=== PATIENT | male | born 1935 | race Caucasian/White ===

== ENCOUNTER 2016-09-24 13:07 | Emergency (ER) | payer OTHER, BC ==
[~2016-09-24] VITALS: Ht 180.3 cm; Wt 102.0 kg
[~2016-09-24 13:07] MED LIST: ADULT LOW DOSE81 M1 PO; ALLOPURINOL100 MG PO; AMLODIPINE BESYL5 MG PO; ASPIR 8181 M1 PO; AUGMENTIN 500-1 EACH PO; BABY ASPIRIN81 MG PO; CARDIZEM CD120 M1 PO; CATAPRES0.1 MG PO; CLONIDINE HCL0.1 MG PO; FLONASE ALLERG9.9 ML BOTH NARES; FORTAMET500 M1 PO; GARLIC OIL1000 MG PO; GARLIC1000 MG PO; GLUCOPHAGE500 MG PO; IBUPROFEN200 M1 PO; IMDUR60 MG PO; ISOSORBIDE DINI10 MG PO; ISOSORBIDE MONO60 MG PO; KETOPROFEN 50 MG PO; LASIX10 MG PO; LEVAQUIN500 MG PO; LIPITOR40 MG PO; LISINOPRIL-HCT1 EAC3 PO; MELOXICAM7.5 MG PO; METFORMIN HCL1000 MG PO; METOPROLOL TART50 MG PO; NABUMETONE500 MG PO; NAPROXEN500 MG PO; NORVASC5 MG PO; OMEPRAZOLE20 M2 PO; OMEPRAZOLE20 MG PO; PRAVASTATIN SOD80 MG PO; PREDNISONE10 MG PO; PREVACID15 MG PO; PRILOSEC OTC20 MG PO; PROAIR HFA8.5 GM IH; SIMVASTATIN80 M1 PO; TOPROL XL50 MG PO; VICODIN 5-3001 EACH PO; VITAMIN D31000 UNI2 PO; ZESTORETIC,P1 TABLE1 PO; ZITHROMAX250 MG PO
[2016-09-24 15:35] LABS: EOSINOPHIL (%) 4.8 % (0-5); EOSINOPHIL COUNT 0.3 K/uL (0-0.3); HEMATOCRIT 35.4 % (38.0-50.0); IMMATURE GRANULOCYTE (%) 0.7 % (0.0-0.7); IMMATURE GRANULOCYTE COUNT 0.4 K/uL; LYMPHOCYTE COUNT 1.9 K/uL (1.0-2.8); MCH 33.4 PG (29.0-34.0); MCHC 36.4 G/DL (30.0-36.0); MCV 91.7 FL (86-99); MEAN PLAT.VOLUME 10.1 uM^3 (9.0-12.4); MONOCYTE (%) 8.9 % (3-12); MONOCYTE COUNT 0.5 K/uL (0-0.8); NEUTROPHIL (%) 53.3 % (45-76); NEUTROPHIL COUNT 3.2 K/uL (1.8-6.4); PLATELET COUNT 207 K/uL (156-360); RBC DIS.WIDTH-CV 12.2 % (11.8-14.6); RBC DIS.WIDTH-SD 39.7 % (39-53); RED BLOOD COUNT 3.86 M/uL (4.00-5.50); WHITE BLOOD COUNT 6.1 K/uL (4.1-10.2)
[2016-09-24 15:46] LABS: CHLORIDE 101 mEq/L (99-109); POTASSIUM 4.4 mEq/L (3.7-5.4); SODIUM 135 mEq/L (136-147)
[2016-09-24 15:48] LABS: GLUCOSE 126 mg/dL (70-99)
[2016-09-24 15:49] LABS: ANION GAP 8 MEQ/L (2-14)
[2016-09-24 15:50] LABS: TOTAL BILIRUBIN 0.5 mg/dL (0.0-1.0)
[2016-09-24 15:51] LABS: ALKALINE PHOSPHATASE 82 IU/L (3-129)
[2016-09-24 15:52] LABS: GFR ESTIMATE (CALCULATED) 42 mL/min/
[2016-09-24 15:53] LABS: UREA NITROGEN (BUN) 20 mg/dL (9-23)
[2016-09-24 15:55] LABS: LIPASE 33 U/L (1.0-51.0)
[2016-09-24 16:00] LABS: ADD MIUA? YES; BILIRUBIN NEGATIVE; BLOOD NEGATIVE; COLOR YELLOW ((YELLOW)); GLUCOSE (STRIP) NEGATIVE; KETONES NEGATIVE; LEUKOCYTES TRACE; NITRITE NEGATIVE; PROTEIN (STRIP) NEGATIVE; SPECIFIC GRAVITY 1.009 (1.000-1.030); UROBILINOGEN 0.2 MG/DL (0.2-1.0)
[2016-09-24 16:10] LABS: BACTERIA NONE SEEN /HPF; EPITHELIAL CELLS RARE /HPF; HYALINE CASTS 0-5 /LPF; MUCUS NONE SEEN /LPF; RED BLOOD CELLS 0-5 /HPF (0-5); WHITE BLOOD CELLS 0-5 /HPF (0-5)
[2016-09-24] MEDS ORDERED: LORTAB 5-325 M1 EACH PO (17:01)
[2016-09-24] MEDS ORDERED: ZYRTEC10 M3 PO (17:01)
[2016-09-24] MEDS ORDERED: COLACE100 MG PO (17:01)
[2016-09-24 17:40] VITALS: BP 135/69
== END 2016-09-24 17:48 | disposition home or self-care (01) ==
LOC: EME 13:07
PROVIDERS: Emergency Medicine
DX: S39.011A Strain of muscle, fascia and tendon of abdomen, initial encounter (principal); X58.XXXA Exposure to other specified factors, initial encounter; I10 Essential (primary) hypertension; E78.5 Hyperlipidemia, unspecified; E11.9 Type 2 diabetes mellitus without complications; Z95.1 Presence of aortocoronary bypass graft; Z79.82 Long term (current) use of aspirin
CPT/HCPCS: 74176; 80053; 81003; 83690; 85025; 99281; 99284; J2270; J2405; J3010; J7030

== ENCOUNTER 2017-04-01 12:47 | Inpatient (IN) | payer OTHER, BC ==
[~2017-04-01] VITALS: Ht 180.3 cm; Wt 96.7 kg
[~2017-04-01 12:47] MED LIST changes: +COLACE100 MG PO; +LORTAB 5-325 M1 EACH PO; +ZYRTEC10 M3 PO
[2017-04-01 15:08] LABS: BASOPHIL COUNT 0.1 K/uL (0-0.1); EOSINOPHIL (%) 0.7 % (0-5); EOSINOPHIL COUNT 0.1 K/uL (0-0.3); HEMATOCRIT 34.2 % (38.0-50.0); IMMATURE GRANULOCYTE (%) 0.4 % (0.0-0.7); IMMATURE GRANULOCYTE COUNT 0.1 K/uL; INSTRUMENT ABS NEUTROPHIL CT 11.9 K/uL; LYMPHOCYTE COUNT 2.1 K/uL (1.0-2.8); MCV 94.5 FL (86-99); MEAN PLAT.VOLUME 10.8 uM^3 (9.0-12.4); MONOCYTE (%) 8.4 % (3-12); MONOCYTE COUNT 1.3 K/uL (0-0.8); NEUTROPHIL (%) 76.6 % (45-76); NEUTROPHIL COUNT 11.9 K/uL (1.8-6.4); PLATELET COUNT 190 K/uL (156-360); RBC DIS.WIDTH-SD 44.5 % (39-53); RED BLOOD COUNT 3.62 M/uL (4.00-5.50); WHITE BLOOD COUNT 15.6 K/uL (4.1-10.2)
[2017-04-01 15:16] LABS: CHLORIDE 102 mEq/L (99-109); INTER. NORMALIZED RATIO 1.2; POTASSIUM 3.6 mEq/L (3.7-5.4); PROTHROMBIN TIME 13.6 SEC (10.2-12.9); SODIUM 139 mEq/L (136-147)
[2017-04-01 15:18] LABS: GLUCOSE 111 mg/dL (70-99)
[2017-04-01 15:19] LABS: PTT 28.9 SEC (25-37)
[2017-04-01 15:20] LABS: ANION GAP 12 MEQ/L (2-14)
[2017-04-01 15:22] LABS: GFR ESTIMATE (CALCULATED) 42 mL/min/
[2017-04-01 15:23] LABS: UREA NITROGEN (BUN) 28 mg/dL (9-23)
[2017-04-01 15:30] LABS: TROP-I INTERPRETATION INDETERMINATE; TROPONIN-I 0.51 ng/mL (0.0-0.30)
[2017-04-01 16:44] LABS: INFLUENZA A VIRAL ANTIGEN NEGATIVE; INFLUENZA B VIRAL ANTIGEN NEGATIVE
[2017-04-01 17:10] VITALS: BP 144/76
[2017-04-01 17:10] LABS: INTER. NORMALIZED RATIO 1.2; PROTHROMBIN TIME 13.7 SEC (10.2-12.9)
[2017-04-01 17:13] LABS: PTT 28.2 SEC (25-37)
[2017-04-01 17:29] LABS: Estimated Average Glucose 160 mg/dL (70-123); HEMOGLOBIN A1c (GLYCOHEMOGLOB) 7.2 % HGB (Below 5.7)
[2017-04-01 17:31] LABS: HDL CHOLESTEROL 30 MG/DL (Desirable>=40); LDL CHOLESTEROL 65 mg/dL (Desirable<100); NON-HDL CHOLESTEROL 90 mg/dL (Desirable<160); TOTAL CHOLESTEROL 120 mg/dL (Desirable<200); TRIGLYCERIDES 125 MG/DL (Normal: <150)
[2017-04-01 19:33] VITALS: BP 123/58
[2017-04-01 21:13] LABS: POINT-OF-CARE METER ID UU13113698
[2017-04-02] VITALS (7 sets, daily range): BP systolic 137–150; BP diastolic 62–95
[2017-04-02 00:59] LABS: TROP-I INTERPRETATION NEGATIVE; TROPONIN-I 0.29 ng/mL (0.0-0.30)
[2017-04-02 05:30] LABS: TROP-I INTERPRETATION NEGATIVE; TROPONIN-I 0.17 ng/mL (0.0-0.30)
[2017-04-02 05:35] LABS: BASOPHIL COUNT 0.1 K/uL (0-0.1); EOSINOPHIL (%) 4.4 % (0-5); EOSINOPHIL COUNT 0.6 K/uL (0-0.3); HEMATOCRIT 32.1 % (38.0-50.0); IMMATURE GRANULOCYTE (%) 0.6 % (0.0-0.7); IMMATURE GRANULOCYTE COUNT 0.1 K/uL; INSTRUMENT ABS NEUTROPHIL CT 9.9 K/uL; LYMPHOCYTE COUNT 1.3 K/uL (1.0-2.8); MCH 33.2 PG (29.0-34.0); MCHC 34.6 G/DL (30.0-36.0); MCV 96.1 FL (86-99); MONOCYTE (%) 6.6 % (3-12); MONOCYTE COUNT 0.8 K/uL (0-0.8); NEUTROPHIL (%) 77.8 % (45-76); NEUTROPHIL COUNT 9.9 K/uL (1.8-6.4); PLATELET COUNT 175 K/uL (156-360); RBC DIS.WIDTH-CV 13.2 % (11.8-14.6); RBC DIS.WIDTH-SD 45.8 % (39-53); RED BLOOD COUNT 3.34 M/uL (4.00-5.50); WHITE BLOOD COUNT 12.7 K/uL (4.1-10.2)
[2017-04-02 05:42] LABS: CHLORIDE 104 mEq/L (99-109); POTASSIUM 3.6 mEq/L (3.7-5.4); SODIUM 136 mEq/L (136-147)
[2017-04-02 05:43] LABS: GLUCOSE 149 mg/dL (70-99)
[2017-04-02 05:45] LABS: ANION GAP 12 MEQ/L (2-14)
[2017-04-02 05:47] LABS: GFR ESTIMATE (CALCULATED) 52 mL/min/
[2017-04-02 05:48] LABS: UREA NITROGEN (BUN) 23 mg/dL (9-23)
[2017-04-02 08:04] LABS: POINT-OF-CARE METER ID UU13113781; POINT-OF-CARE USER ID ENVKC36
[2017-04-02 08:24] LABS: INTERNAL CONTROL VALID? YES
[2017-04-02] MEDS ORDERED: TYLENOL ARTHRI650 MG PO (08:48)
[2017-04-02 11:26] LABS: POINT-OF-CARE METER ID UU14174216
[2017-04-02] MEDS ORDERED: GLIPIZIDE5 MG PO (16:21)
[2017-04-02] MEDS ORDERED: POTASSIUM CHLO10 ME4 PO (16:21)
[2017-04-02] MEDS ORDERED: FUROSEMIDE20 MG PO (16:21)
[2017-04-02] MEDS ORDERED: RANITIDINE HCL150 MG PO (16:22)
[2017-04-02 16:51] LABS: POINT-OF-CARE METER ID UU13113781
[2017-04-02 21:32] LABS: POINT-OF-CARE METER ID UU13113781
[2017-04-03 06:04] LABS: HEMATOCRIT 30.7 % (38.0-50.0); MCH 35.1 PG (29.0-34.0); MCHC 36.5 G/DL (30.0-36.0); MCV 96.2 FL (86-99); MEAN PLAT.VOLUME 11.2 uM^3 (9.0-12.4); PLATELET COUNT 172 K/uL (156-360); RBC DIS.WIDTH-CV 13.2 % (11.8-14.6); RBC DIS.WIDTH-SD 46.6 % (39-53); RED BLOOD COUNT 3.19 M/uL (4.00-5.50); WHITE BLOOD COUNT 8.1 K/uL (4.1-10.2)
[2017-04-03 07:00] VITALS: BP 135/68
[2017-04-03 07:55] LABS: ANION GAP 8 MEQ/L (2-14); CHLORIDE 104 MEQ/L (99-109); GFR ESTIMATE (CALCULATED) > 59 mL/min/; GLUCOSE 127 mg/dL (70-99); POTASSIUM 3.8 MEQ/L (3.7-5.4); SAMPLE HEMOLYSIS CHECK 0; SAMPLE ICTERIC CHECK 0; SAMPLE LIPEMIA CHECK 0; SODIUM 136 MEQ/L (136-147); UREA NITROGEN (BUN) 20 mg/dL (9-23)
[2017-04-03 08:05] LABS: METH RESISTANT S AUREUS PCR NEGATIVE (NEGATIVE)
[2017-04-03 08:09] LABS: PROBE CHECK PASS; SPECIMEN PROCESSING CONTROL PASS
[2017-04-03 11:45] VITALS: BP 152/79
[2017-04-03 15:15] VITALS: BP 145/74
[2017-04-03 20:30] VITALS: BP 171/82
[2017-04-03 20:59] LABS: POINT-OF-CARE USER ID ENVMNS
[2017-04-04] VITALS (7 sets, daily range): BP systolic 156–177; BP diastolic 74–82
[2017-04-04 05:56] LABS: MCH 33.2 PG (29.0-34.0); MCHC 35.3 G/DL (30.0-36.0); MCV 94.1 FL (86-99); MEAN PLAT.VOLUME 11.2 uM^3 (9.0-12.4); PLATELET COUNT 197 K/uL (156-360); RBC DIS.WIDTH-CV 12.7 % (11.8-14.6); RBC DIS.WIDTH-SD 43.8 % (39-53); WHITE BLOOD COUNT 8.2 K/uL (4.1-10.2)
[2017-04-04 06:16] LABS: ANION GAP 10 MEQ/L (2-14); CHLORIDE 100 MEQ/L (99-109); GFR ESTIMATE (CALCULATED) > 59 mL/min/; GLUCOSE 127 mg/dL (70-99); POTASSIUM 3.7 MEQ/L (3.7-5.4); SAMPLE HEMOLYSIS CHECK 0; SAMPLE ICTERIC CHECK 0; SAMPLE LIPEMIA CHECK 0; SODIUM 134 MEQ/L (136-147); UREA NITROGEN (BUN) 19 mg/dL (9-23); URIC ACID 5.5 mg/dL (3.1-9.2)
[2017-04-04 21:21] LABS: POINT-OF-CARE METER ID UU13113725
[2017-04-05 03:35] VITALS: BP 166/73
[2017-04-05 06:12] LABS: POINT-OF-CARE METER ID UU13113725
[2017-04-05 07:39] LABS: ANION GAP 12 MEQ/L (2-14); CHLORIDE 100 MEQ/L (99-109); GFR ESTIMATE (CALCULATED) > 59 mL/min/; GLUCOSE 151 mg/dL (70-99); SAMPLE HEMOLYSIS CHECK 0; SAMPLE ICTERIC CHECK 0; SAMPLE LIPEMIA CHECK 0; SODIUM 134 MEQ/L (136-147)
[2017-04-05 07:41] LABS: UREA NITROGEN (BUN) 29 mg/dL (9-23)
[2017-04-05 07:54] VITALS: BP 172/82
[2017-04-05 11:08] LABS: POINT-OF-CARE METER ID UU13113725
[2017-04-05 15:36] LABS: POINT-OF-CARE METER ID UU13113725
[2017-04-05 16:05] VITALS: BP 152/67
[2017-04-05 20:52] VITALS: BP 192/84
[2017-04-05 22:49] VITALS: BP 146/65
[2017-04-06 06:35] LABS: HEMATOCRIT 32.8 % (38.0-50.0); MCH 33.3 PG (29.0-34.0); MCHC 35.4 G/DL (30.0-36.0); MCV 94.3 FL (86-99); MEAN PLAT.VOLUME 10.9 uM^3 (9.0-12.4); PLATELET COUNT 238 K/uL (156-360); RBC DIS.WIDTH-SD 44.4 % (39-53); RED BLOOD COUNT 3.48 M/uL (4.00-5.50); WHITE BLOOD COUNT 11.2 K/uL (4.1-10.2)
[2017-04-06 07:01] LABS: ANION GAP 10 MEQ/L (2-14); CHLORIDE 103 MEQ/L (99-109); GFR ESTIMATE (CALCULATED) 52 mL/min/; GLUCOSE 144 mg/dL (70-99); POTASSIUM 4.2 MEQ/L (3.7-5.4); SAMPLE HEMOLYSIS CHECK 0; SAMPLE ICTERIC CHECK 0; SAMPLE LIPEMIA CHECK 0; SODIUM 138 MEQ/L (136-147); UREA NITROGEN (BUN) 36 mg/dL (9-23)
[2017-04-06 07:43] VITALS: BP 151/78
[2017-04-06] MEDS ORDERED: FLECTOR 1.3%1 PATC1 TD (10:55)
[2017-04-06] MEDS ORDERED: PREDNISONE20 MG PO ×2 (10:55→11:01)
[2017-04-06] MEDS ORDERED: OMNICEF300 MG PO (11:10)
== END 2017-04-06 13:06 | disposition home or self-care (01) | DRG 280 ==
LOC: EME 12:47 → ENRESERV 15:56 → EDOF 15:56 → 4EAST 15:56 → ENRESERV 16:06 → 4EAST 17:03 → ENRESERV 04-04 05:53 → 5EAST 04-04 08:52
PROVIDERS: Emergency Medicine; Internal Medicine
DX: I21.4 Non-ST elevation (NSTEMI) myocardial infarction (principal); J96.01 Acute respiratory failure with hypoxia; N17.9 Acute kidney failure, unspecified; J18.9 Pneumonia, unspecified organism; E05.90 Thyrotoxicosis, unspecified without thyrotoxic crisis or storm; I25.10 Atherosclerotic heart disease of native coronary artery without angina pectoris; E11.22 Type 2 diabetes mellitus with diabetic chronic kidney disease; K21.9 Gastro-esophageal reflux disease without esophagitis; K44.9 Diaphragmatic hernia without obstruction or gangrene; I42.1 Obstructive hypertrophic cardiomyopathy; I27.2 Other secondary pulmonary hypertension; M10.9 Gout, unspecified; M19.90 Unspecified osteoarthritis, unspecified site; M25.572 Pain in left ankle and joints of left foot; I12.9 Hypertensive chronic kidney disease with stage 1 through stage 4 chronic kidney disease, or unspecified chronic kidney disease; E78.5 Hyperlipidemia, unspecified; F32.9 Major depressive disorder, single episode, unspecified; N18.3 Chronic kidney disease, stage 3 (moderate); Y95 Nosocomial condition; Z88.6 Allergy status to analgesic agent; Z88.0 Allergy status to penicillin; Z95.1 Presence of aortocoronary bypass graft; Z88.2 Allergy status to sulfonamides; Z79.4 Long term (current) use of insulin; Z82.49 Family history of ischemic heart disease and other diseases of the circulatory system
CPT/HCPCS: 71020; 71250; 73610; 73630; 80048; 80061; 80202; 82948; 83036; 83605; 84484; 84550; 85025; 85027; 85610; 85730; 87040; 87070; 87205; 87449; 87502; 87641; 93005; 93306; 94640; 94640 76; 94799; 97530 GO; 99202; 99281; 99285; J0456; J0692; J1170; J1644; J1815; J2270; J3370; J7030; J7050; J7512

== ENCOUNTER 2017-06-29 15:08 | Emergency (ER) | payer OTHER, BC ==
[~2017-06-29 15:08] MED LIST changes: +FLECTOR 1.3%1 PATC1 TD; +FUROSEMIDE20 MG PO; +GLIPIZIDE5 MG PO; +OMNICEF300 MG PO; +POTASSIUM CHLO10 ME4 PO; +PREDNISONE20 MG PO; +RANITIDINE HCL150 MG PO; +TYLENOL ARTHRI650 MG PO
== END 2017-06-29 16:59 | disposition left against medical advice (07) ==
LOC: EME 15:08
DX: Z53.21 Procedure and treatment not carried out due to patient leaving prior to being seen by health care provider (principal)

== ENCOUNTER 2017-06-30 20:42 | Inpatient (IN) | payer OTHER, BC ==
[~2017-06-30] VITALS: Ht 180.3 cm; Wt 103.4 kg
[2017-06-30 21:09] LABS: EOSINOPHIL (%) 0 % (0-5); HEMATOCRIT 35.9 % (38.0-50.0); IMMATURE GRANULOCYTE (%) 0.6 % (0.0-0.7); IMMATURE GRANULOCYTE COUNT 0.1 K/uL; INSTRUMENT ABS NEUTROPHIL CT 11.7 K/uL; LYMPHOCYTE COUNT 2.5 K/uL (1.0-2.8); MCH 33.9 PG (29.0-34.0); MCHC 35.9 G/DL (30.0-36.0); MCV 94.5 FL (86-99); MEAN PLAT.VOLUME 10.4 uM^3 (9.0-12.4); MONOCYTE (%) 3.9 % (3-12); MONOCYTE COUNT 0.6 K/uL (0-0.8); NEUTROPHIL (%) 78.5 % (45-76); NEUTROPHIL COUNT 11.7 K/uL (1.8-6.4); PLATELET COUNT 262 K/uL (156-360); RBC DIS.WIDTH-CV 12.9 % (11.8-14.6); RBC DIS.WIDTH-SD 44.6 % (39-53); WHITE BLOOD COUNT 14.9 K/uL (4.1-10.2)
[2017-06-30 21:15] LABS: INTER. NORMALIZED RATIO 1.3; PROTHROMBIN TIME 14.9 SEC (10.2-12.9)
[2017-06-30 21:17] LABS: PTT 34.7 SEC (25-37)
[2017-06-30 21:19] LABS: AMYLASE 34 IU/L (1-118); CHLORIDE 99 mEq/L (99-109); POTASSIUM 4.2 mEq/L (3.7-5.4); SODIUM 138 mEq/L (136-147)
[2017-06-30 21:21] LABS: GLUCOSE 328 mg/dL (70-99)
[2017-06-30 21:22] LABS: ANION GAP 19 MEQ/L (2-14)
[2017-06-30 21:24] LABS: SERUM ETHYL ALCOHOL < 10 mg/dL
[2017-06-30 21:25] LABS: GFR ESTIMATE (CALCULATED) 34 mL/min/
[2017-06-30 21:26] LABS: UREA NITROGEN (BUN) 39 mg/dL (9-23)
[2017-06-30 21:28] LABS: LIPASE 46 U/L (1.0-51.0)
[2017-06-30 21:29] LABS: TROP-I INTERPRETATION NEGATIVE; TROPONIN-I < 0.01 ng/mL (0.0-0.30)
[2017-06-30 23:45] LABS: ADD MIUA? NO; BILIRUBIN NEGATIVE; BLOOD NEGATIVE; COLOR YELLOW ((YELLOW)); GLUCOSE (STRIP) >=500; KETONES NEGATIVE; LEUKOCYTES NEGATIVE; NITRITE NEGATIVE; PROTEIN (STRIP) NEGATIVE; SPECIFIC GRAVITY 1.012 (1.000-1.030); UCUL ADDED? NO; UROBILINOGEN 0.2 MG/DL (0.2-1.0)
[2017-07-01 00:07] LABS: AMPHETAMINE NEGATIVE (500 ng/mL); BARBITURATES NEGATIVE (200 ng/mL); BENZODIAZEPINES NEGATIVE (150 ng/mL); COCAINE NEGATIVE (150 ng/mL); INTERNAL CONTROLS VALID? YES; METHADONE NEGATIVE (200 ng/mL); METHAMPHETAMINE NEGATIVE (500 ng/mL); OPIATES (MORPHINE) PRESUMPTIVE POSITIVE (100 ng/mL); OXYCODONE NEGATIVE (100 ng/mL); PHENCYCLIDINE NEGATIVE (25 ng/mL); PROPOXYPHENE NEGATIVE (300 ng/mL); THC CANNABINOIDS NEGATIVE (50 ng/mL); TRICYCLIC ANTIDEPRESSANTS NEGATIVE (300 ng/mL)
[2017-07-01 00:08] LABS: ADD MEDTOX COMMENT Y
[2017-07-01] MEDS ORDERED: PREDNISONE10 MG PO (00:35)
[2017-07-01] MEDS ORDERED: ENOXAPARIN100 MG/1 M SC (00:36)
[2017-07-01] MEDS ORDERED: WARFARIN SODIUM5 MG PO (00:37)
[2017-07-01] MEDS ORDERED: OXYCODONE H5 MG/5 ML PO (00:41)
[2017-07-01] MEDS ORDERED: GLIPIZIDE ER2.5 MG PO (00:52)
[2017-07-01] MEDS ORDERED: LISINOPRIL20 MG PO (00:55)
[2017-07-01 03:50] LABS: TROP-I INTERPRETATION INDETERMINATE; TROPONIN-I 0.34 ng/mL (0.0-0.30)
[2017-07-01 07:47] LABS: POINT-OF-CARE METER ID UU13113702
[2017-07-01 09:02] LABS: HEMATOCRIT 33.3 % (38.0-50.0); MCH 34.3 PG (29.0-34.0); MCHC 35.7 G/DL (30.0-36.0); MEAN PLAT.VOLUME 10.2 uM^3 (9.0-12.4); PLATELET COUNT 232 K/uL (156-360); RBC DIS.WIDTH-CV 13.1 % (11.8-14.6); RED BLOOD COUNT 3.47 M/uL (4.00-5.50); WHITE BLOOD COUNT 12.2 K/uL (4.1-10.2)
[2017-07-01 09:11] LABS: CHLORIDE 104 mEq/L (99-109); POTASSIUM 3.6 mEq/L (3.7-5.4); SODIUM 138 mEq/L (136-147)
[2017-07-01 09:13] LABS: GLUCOSE 222 mg/dL (70-99)
[2017-07-01 09:14] LABS: ANION GAP 11 MEQ/L (2-14)
[2017-07-01 09:15] LABS: TOTAL BILIRUBIN 0.4 mg/dL (0.0-1.0)
[2017-07-01 09:16] LABS: ALKALINE PHOSPHATASE 58 IU/L (3-129)
[2017-07-01 09:17] LABS: GFR ESTIMATE (CALCULATED) 48 mL/min/
[2017-07-01 09:18] LABS: UREA NITROGEN (BUN) 31 mg/dL (9-23)
[2017-07-01 09:23] LABS: TROP-I INTERPRETATION INDETERMINATE
[2017-07-01 12:21] LABS: POINT-OF-CARE METER ID UU13113702
[2017-07-01 16:00] VITALS: BP 155/76
[2017-07-01 16:49] LABS: POINT-OF-CARE METER ID UU13113781; POINT-OF-CARE USER ID ENVKC36
[2017-07-01 18:23] LABS: INTER. NORMALIZED RATIO 1.1; PROTHROMBIN TIME 12.6 SEC (10.2-12.9)
[2017-07-01 18:32] LABS: PTT 67.5 SEC (25-37)
[2017-07-01 19:14] VITALS: BP 124/60
[2017-07-01 21:00] LABS: POINT-OF-CARE METER ID UU14314088
[2017-07-02 00:48] VITALS: BP 100/51
[2017-07-02 04:58] VITALS: BP 127/61
[2017-07-02 07:28] VITALS: BP 123/61
[2017-07-02 07:41] LABS: POINT-OF-CARE METER ID UU13113698
[2017-07-02 11:29] LABS: POINT-OF-CARE METER ID UU13113698
[2017-07-02 12:09] LABS: TROP-I INTERPRETATION NEGATIVE; TROPONIN-I 0.25 ng/mL (0.0-0.30)
[2017-07-02 12:21] VITALS: BP 126/60
== END 2017-07-02 16:45 | disposition home or self-care (01) | DRG 313 ==
LOC: EME 20:42 → EDOF 07-01 00:01 → 4EAST 07-01 00:01 → ENRESERV 07-01 00:02 → 4EAST 07-01 15:59 → ENPENDDIS 07-02 → 4EAST 07-02 16:45
PROVIDERS: Emergency Medicine; Hospitalist; Internal Medicine; Internal Medicine Cardiovascular Disease
DX: R07.9 Chest pain, unspecified (principal); I12.9 Hypertensive chronic kidney disease with stage 1 through stage 4 chronic kidney disease, or unspecified chronic kidney disease; E11.22 Type 2 diabetes mellitus with diabetic chronic kidney disease; N18.3 Chronic kidney disease, stage 3 (moderate); E78.5 Hyperlipidemia, unspecified; K21.9 Gastro-esophageal reflux disease without esophagitis; I25.110 Atherosclerotic heart disease of native coronary artery with unstable angina pectoris; I25.810 Atherosclerosis of coronary artery bypass graft(s) without angina pectoris; I25.82 Chronic total occlusion of coronary artery; I70.0 Atherosclerosis of aorta; E66.9 Obesity, unspecified; Z86.711 Personal history of pulmonary embolism; Z86.718 Personal history of other venous thrombosis and embolism; Z95.1 Presence of aortocoronary bypass graft; Z88.0 Allergy status to penicillin; Z88.2 Allergy status to sulfonamides; Z88.5 Allergy status to narcotic agent; Z68.30 Body mass index [BMI] 30.0-30.9, adult
CPT/HCPCS: 71275; 74174; 80048; 80053; 81003; 82150; 82948; 83605; 83690; 84484; 84999; 85025; 85027; 85610; 85730; 86850; 86900; 86901; 93005; 99281; 99285; G0480; J1650; J1815; J3010; J7030

== ENCOUNTER 2017-10-05 13:39 | Observation (INO) | payer OTHER ==
[~2017-10-05] VITALS: Ht 180.3 cm; Wt 106.5 kg
[~2017-10-05 13:39] MED LIST changes: +ENOXAPARIN100 MG/1 M SC; +GLIPIZIDE ER2.5 MG PO; +LISINOPRIL20 MG PO; +OXYCODONE H5 MG/5 ML PO; +WARFARIN SODIUM5 MG PO
[2017-10-05 14:28] LABS: BASOPHIL (%) 0.7 % (0-1); BASOPHIL COUNT 0.1 K/uL (0-0.1); EOSINOPHIL (%) 8.9 % (0-5); EOSINOPHIL COUNT 0.7 K/uL (0-0.3); HEMATOCRIT 37.3 % (38.0-50.0); HEMOGLOBIN 13.6 G/DL (12.5-16.6); IMMATURE GRANULOCYTE (%) 0.4 % (0.0-0.7); LYMPHOCYTE (%) 31.2 % (15-42); LYMPHOCYTE COUNT 2.5 K/uL (1.0-2.8); MCH 33.3 PG (29.0-34.0); MCHC 36.5 G/DL (30.0-36.0); MCV 91.4 FL (86-99); MONOCYTE (%) 10.4 % (3-12); MONOCYTE COUNT 0.8 K/uL (0-0.8); NEUTROPHIL (%) 48.4 % (45-76); NEUTROPHIL COUNT 3.9 K/uL (1.8-6.4); PLATELET COUNT 217 K/uL (156-360); RBC DIS.WIDTH-CV 13.1 % (11.8-14.6); RBC DIS.WIDTH-SD 43.8 % (39-53); RED BLOOD COUNT 4.08 M/uL (4.00-5.50); WHITE BLOOD COUNT 8.1 K/uL (4.1-10.2)
[2017-10-05 14:41] LABS: ALBUMIN 4.4 g/dL (3.2-4.8); CHLORIDE 100 mEq/L (99-109); INTER. NORMALIZED RATIO 3.3; POTASSIUM 3.5 mEq/L (3.7-5.4); SODIUM 137 mEq/L (136-147)
[2017-10-05 14:44] LABS: GLUCOSE 112 mg/dL (70-99); TOTAL PROTEIN 7.9 g/dL (6.4-8.3)
[2017-10-05 14:46] LABS: TOTAL BILIRUBIN 0.6 mg/dL (0.0-1.0)
[2017-10-05 14:47] LABS: ALKALINE PHOSPHATASE 85 IU/L (3-129); CREATININE 1.7 mg/dL (0.6-1.3); GFR ESTIMATE (CALCULATED) 41 mL/min/ (58.99-99999)
[2017-10-05 14:48] LABS: UREA NITROGEN (BUN) 19 mg/dL (9-23)
[2017-10-05 14:49] LABS: AST (GOT) 19 IU/L (2-34)
[2017-10-05 14:50] LABS: ALT (GPT) 19 IU/L (3-49)
[2017-10-05 14:54] LABS: TROP-I INTERPRETATION NEGATIVE; TROPONIN-I < 0.01 ng/mL (0.0-0.30)
[2017-10-05] MEDS ORDERED: COUMADIN5 MG PO (16:52)
[2017-10-05 17:40] VITALS: BP 154/92
[2017-10-05 19:20] VITALS: BP 156/76
[2017-10-05 21:26] LABS: TROP-I INTERPRETATION NEGATIVE; TROPONIN-I < 0.01 ng/mL (0.0-0.30)
[2017-10-05 23:52] VITALS: BP 110/59
[2017-10-06 02:54] LABS: TROP-I INTERPRETATION NEGATIVE; TROPONIN-I 0.01 ng/mL (0.0-0.30)
[2017-10-06 03:51] VITALS: BP 118/55
[2017-10-06 04:55] VITALS: BP 115/62
[2017-10-06 05:52] LABS: INTER. NORMALIZED RATIO 2.9
[2017-10-06 06:07] LABS: CHLORIDE 103 MEQ/L (99-109); CREATININE 1.8 MG/DL (0.6-1.3); GFR ESTIMATE (CALCULATED) 39 mL/min/ (58.99-99999); GLUCOSE 104 mg/dL (70-99); POTASSIUM 4.2 MEQ/L (3.7-5.4); SODIUM 139 MEQ/L (136-147); UREA NITROGEN (BUN) 21 mg/dL (9-23)
[2017-10-06 07:59] VITALS: BP 139/66
[2017-10-06 11:59] VITALS: BP 108/54
[2017-10-06 16:00] VITALS: BP 115/74
[2017-10-06 16:05] LABS: APPEARANCE CLEAR ((CLEAR)); BILIRUBIN NEGATIVE; BLOOD NEGATIVE; COLOR YELLOW ((YELLOW)); GLUCOSE (STRIP) NEGATIVE; KETONES NEGATIVE; LEUKOCYTES NEGATIVE; NITRITE NEGATIVE; PROTEIN (STRIP) NEGATIVE; SPECIFIC GRAVITY 1.012 (1.000-1.030); UCUL ADDED? NO; UROBILINOGEN 0.2 MG/DL (0.2-1.0)
[2017-10-06 19:02] VITALS: BP 145/66
[2017-10-07 00:07] VITALS: BP 131/60
[2017-10-07 05:05] VITALS: BP 138/66
[2017-10-07 07:15] VITALS: BP 183/82
[2017-10-07 08:59] LABS: HEMATOCRIT 33.4 % (38.0-50.0); MCH 33.5 PG (29.0-34.0); MCHC 35.9 G/DL (30.0-36.0); MCV 93.3 FL (86-99); PLATELET COUNT 209 K/uL (156-360); RBC DIS.WIDTH-CV 13.3 % (11.8-14.6); RBC DIS.WIDTH-SD 45.3 % (39-53); RED BLOOD COUNT 3.58 M/uL (4.00-5.50); WHITE BLOOD COUNT 10.8 K/uL (4.1-10.2)
[2017-10-07 09:21] LABS: CHLORIDE 101 MEQ/L (99-109); CREATININE 1.7 MG/DL (0.6-1.3); GFR ESTIMATE (CALCULATED) 41 mL/min/ (58.99-99999); GLUCOSE 225 mg/dL (70-99); POTASSIUM 4.7 MEQ/L (3.7-5.4); SODIUM 135 MEQ/L (136-147); UREA NITROGEN (BUN) 33 mg/dL (9-23)
[2017-10-07] MEDS ORDERED: AZITHROMYCIN500 M1 PO (10:34)
[2017-10-07] MEDS ORDERED: ULTRAM50 MG PO (10:34)
[2017-10-07] MEDS ORDERED: PREDNISONE20 MG PO (10:34)
[2017-10-07] MEDS ORDERED: PERCOCET 5/31 TABLET PO (10:47)
[2017-10-07 11:02] LABS: TROP-I INTERPRETATION NEGATIVE; TROPONIN-I < 0.01 ng/mL (0.0-0.30)
[2017-10-07 11:30] VITALS: BP 144/69
== END 2017-10-07 13:51 | disposition home or self-care (01) ==
LOC: EME 13:39 → EDOF 16:24 → 5WEST 16:24 → ENRESERV 16:36 → 5WEST 17:20
PROVIDERS: Emergency Medicine; Family Medicine; Hospitalist
DX: R07.9 Chest pain, unspecified (principal); J20.9 Acute bronchitis, unspecified; I25.10 Atherosclerotic heart disease of native coronary artery without angina pectoris; Z86.711 Personal history of pulmonary embolism; Z86.718 Personal history of other venous thrombosis and embolism; Z95.1 Presence of aortocoronary bypass graft; Z79.01 Long term (current) use of anticoagulants; E11.22 Type 2 diabetes mellitus with diabetic chronic kidney disease; I12.9 Hypertensive chronic kidney disease with stage 1 through stage 4 chronic kidney disease, or unspecified chronic kidney disease; N18.3 Chronic kidney disease, stage 3 (moderate); E78.5 Hyperlipidemia, unspecified; K21.9 Gastro-esophageal reflux disease without esophagitis; M19.90 Unspecified osteoarthritis, unspecified site; Z79.4 Long term (current) use of insulin; M10.9 Gout, unspecified; R79.1 Abnormal coagulation profile; E87.6 Hypokalemia; Z88.5 Allergy status to narcotic agent; Z88.0 Allergy status to penicillin; Z88.2 Allergy status to sulfonamides; Z90.49 Acquired absence of other specified parts of digestive tract
CPT/HCPCS: 71045; 71275; 80048; 80053; 81003; 82948; 83880; 84484; 85025; 85027; 85610; 87502; 93005; 94640; 94640 76; 99202; 99281; 99285; G0378; J1815; J2270; J2930; J3010; J7040; J7512